=== PATIENT | female | born 1975 | race Caucasian/White ===

== ENCOUNTER → 2016-09-14 | Outpatient (CLI) | payer OTHER ==
[2015-07-01 09:21] VITALS: BP 114/70
[~2016-09-14] MED LIST: OXYC-323 PO
--- NOTE | 2016-09-14 12:18 | KCIC ---
Indication: Contusion and pain to the left ribs, fall. Time of exam 11:34 AM Multiple views of the left ribs were obtained. No displaced rib fractures detected. No parenchymal contusion, effusion or pneumothorax is detected. IMPRESSION: No acute abnormality is detected. Electronically signed by: Herson Monet MD (09/14/2016 12:14 PM) [id number]
== END | disposition home or self-care (01) ==
LOC: KCIC 11:28
PROVIDERS: ATTEND Family Medicine
DX: S20.219A Contusion of unspecified front wall of thorax, initial encounter (principal); X58.XXXA Exposure to other specified factors, initial encounter; Y93.89 Activity, other specified; Y92.89 Other specified places as the place of occurrence of the external cause; Y99.8 Other external cause status
CPT/HCPCS: 71101